=== PATIENT | male | born 1950 | race Two or more races ===

== ENCOUNTER 2017-01-11 13:31 | Inpatient (IN) | payer MEDICARE, OTHER ==
[~2017-01-11] VITALS: Ht 165.1 cm; Wt 63.5 kg
[2017-01-11] MEDS ORDERED: ZOLP5TAB7 PO (13:57)
[2017-01-11] MEDS ORDERED: ASPI-991 PO (13:57)
[2017-01-11] MEDS ORDERED: LINA5TAB PO (13:57)
[2017-01-11] MEDS ORDERED: ESCI5TAB PO (13:57)
[2017-01-11] MEDS ORDERED: INSU100V7 SQ (13:57)
[2017-01-11] MEDS ORDERED: CHOL100044 PO (13:57)
[2017-01-11] MEDS ORDERED: IPRA3AMP IH (13:57)
[2017-01-11] MEDS ORDERED: LISI-607 PO (13:57)
[2017-01-11] MEDS ORDERED: LEVO500T90 PO (13:57)
[2017-01-11] MEDS ORDERED: INSU100V11 SQ (13:57)
[2017-01-11] MEDS ORDERED: TAMS-12 PO (13:57)
[2017-01-11] MEDS ORDERED: BENZ-20 PO (13:57)
[2017-01-11] MEDS ORDERED: METF500T4 PO (13:57)
[2017-01-11] MEDS ORDERED: ATOR40TA PO (13:57)
[2017-01-11] MEDS ORDERED: INSU100V26 SQ (13:57)
--- NOTE | 2017-01-11 14:15 | NUR ---
RN-CO: DR ALAS NOTIFIED AND GAVE ADMITTING ORDERS VIA PHONE CALL, NOTED AND AND CARRIED OUT.
[2017-01-11] MEDS ORDERED: MAGNESIUM HYDROXIDE 30 ML UDC PO PRN (14:30)
[2017-01-11] MEDS ORDERED: ACETAMINOPHEN 325 MG TABLET PO PRN (14:30)
[2017-01-11] MEDS ORDERED: MAG HYDROX/AL HYDROX/SIMETH 30 ML UDC PO PRN (14:30)
[2017-01-11] MEDS ORDERED: LORAZEPAM 0.5 MG TABLET PO PRN (14:30)
--- NOTE | 2017-01-11 14:30 | NUR ---
RN-CO: Admitted a 66 year old white male from [facility] Medical floor.(direct admit). Patient was placed on a 5150 hold for Danger to Himself by Marcella Arellano RN. Upon face to face assessment, patient is angry, belligerent and verbally abusive. Patient stated " go to hell and f*@!K yourself.!" He refused to sign admitting papers and even skin check. Patient verbalized to his primary nurse and to MUSIC RESEARCHER that he feels suicidal but did not disclose how. His affect is angry, and stated "go to hell" to charge nurse. All his belongings were screened for contraband. A sitter was ordered for him because of his suicidal ideations.We will monitor patient closely.
[2017-01-11 15:50] VITALS: BP 137/75
--- NOTE | 2017-01-11 16:15 | NUR ---
RN-CO: Dr Horton seen and examined the patient. Girlfriend "Kelly" was notified regarding the admission.
[2017-01-11] MEDS ORDERED: INSULIN REGULAR, HUMAN 100 UNIT/ML 3 ML VIAL SQ PRN (16:30)
[2017-01-11] MEDS ORDERED: INSULIN GLARGINE HUM REC ANLOG 18 UNIT SQ SCH (16:30)
--- NOTE | 2017-01-11 16:42 | NUR ---
RN-CO: DR ALAS WAS NOTIFIED REGARDING THIS ADMISSION, DR ALAS GAVE HIS ADMITTING ORDERS NOTED AND CARRIED OUT.
[2017-01-11] MEDS ORDERED: Medication Not On Formulary EA (Ipratropium/Albuterol Sulfate (Duoneb 2.5-0.5 Mg/3 Ml So IH SCH (17:00)
[2017-01-11] MEDS: INSULIN ASPART NOVOLOG 100 UNIT/ML CARTRIDGE SQ SCH (17:30)
[2017-01-11] MEDS ORDERED: DEXTROSE 50%-WATER 50 ML DISP.SYRIN IV PRN (17:30)
[2017-01-11] MEDS: BLOOD SUGAR DIAGNOSTIC 1 EACH STRIP VI SCH ×2 (17:40→21:35)
[2017-01-11] MEDS: METFORMIN 500 MG TABLET PO SCH (17:56)
[2017-01-11] MEDS ORDERED: ALBUTEROL FS 2.5 MG/3 ML VIAL.NEB NEB PRN (18:00)
[2017-01-11] MEDS ORDERED: IPRATROPIUM NEB FS 0.5 MG/2.5 ML AMPUL.NEB NEB PRN (18:00)
--- NOTE | 2017-01-11 18:36 | NUR ---
GPS/RN INSULIN ABSENT FROM UNIT, SPOKE WITH PHARMACY ON 3 OCCASIONS, STATED THAT IT IS ON ROUTE TO UNIT, AWAITING INSULIN, UNABLE TO ADMINISTER AT THIS TIME. BS 141, PATIENT STABLE NO S/S OF DISTRESS AT THIS TIME.
--- NOTE | 2017-01-11 19:15 | NUR ---
GPS/RN NOTE: PATIENT UP IN BED, QUIET, CALM, NO ACUTE DISTRESS NOTED.
[2017-01-11 20:00] VITALS: BP 154/84
[2017-01-11] MEDS: TAMSULOSIN 0.4 MG CAP.SR.24H PO SCH (21:30)
[2017-01-11] MEDS: ATORVASTATIN 40 MG TABLET PO SCH (21:30)
[2017-01-11] MEDS: INSULIN REGULAR, HUMAN 100 UNIT/ML 3 ML VIAL SQ PRN (21:38)
--- NOTE | 2017-01-11 21:39 | NUR ---
GPS/RN NOTE: ACCUCHECK 154 MG/DL, 2 UNITS REGULAR INSULIN SC ADMINISTERED.
[2017-01-12 06:46] LABS: ALBUMIN 2.5 g/dL (3.4-5.0); BILIRUBIN,TOTAL 0.3 mg/dL (0.2-1.0); TOTAL PROTEIN, SERUM 7.2 g/dL (6.4-8.2)
--- NOTE | 2017-01-12 07:03 | NUR ---
GPS/RN NOTE: PHOTOS TAKEN. SKIN ASSESSMENT DONE
[2017-01-12] MEDS: BLOOD SUGAR DIAGNOSTIC 1 EACH STRIP VI SCH ×4 (08:03→21:14)
[2017-01-12 08:04] VITALS: BP 138/74
[2017-01-12] MEDS: INSULIN ASPART NOVOLOG 100 UNIT/ML CARTRIDGE SQ SCH ×3 (08:05→17:46)
[2017-01-12] MEDS: INSULIN REGULAR, HUMAN 100 UNIT/ML 3 ML VIAL SQ PRN (08:07)
[2017-01-12] MEDS: METFORMIN 500 MG TABLET PO SCH ×2 (08:45→17:20)
[2017-01-12] MEDS: CHOLECALCIFEROL 1,000 UNIT TABLET (VIT D3) PO SCH (08:45)
[2017-01-12] MEDS: LINAGLIPTIN 5 MG TABLET PO SCH (08:45)
[2017-01-12] MEDS: LEVOFLOXACIN (500MG) 500 MG TABLET PO SCH (08:45)
[2017-01-12] MEDS: LISINOPRIL (5MG) 5 MG TABLET PO SCH (08:45)
[2017-01-12] MEDS: BENZONATATE 100 MG CAPSULE PO SCH (08:45)
[2017-01-12] MEDS: ASPIRIN EC 81 MG TABLET.DR PO SCH (08:45)
[2017-01-12] MEDS: INSULIN DETEMIR 100 UNIT/ML CARTRIDGE SQ SCH (08:47)
--- NOTE | 2017-01-12 12:02 | NUR ---
Initial Discharge Plan: Patient lives in an apartment with his girlfriend [address] [place] [id number]. ([phone]). cattle alley worker attempted to contact patient's girlfriend Svetlana Mendoza / . However, she was unavailable. cattle alley worker left a detailed message with her contact information. cattle alley worker will attempt again later. cattle alley worker will follow-up with MD, Family, and Patient regarding most appropriate discharge. cattle alley worker will help form a safe and proper discharge.
--- NOTE | 2017-01-12 15:15 | NUR ---
Reviewed psychosocial assessment on patient done by Tyra Krishnamurthy. Addendum: 01/12/17 at 1516 by SEGUNDO BURK Amended: Links added.
[2017-01-12 15:36] VITALS: BP 144/80
[2017-01-12 20:00] VITALS: BP 147/71
[2017-01-12] MEDS: ATORVASTATIN 40 MG TABLET PO SCH (20:58)
[2017-01-12] MEDS: TAMSULOSIN 0.4 MG CAP.SR.24H PO SCH (20:58)
[2017-01-13 08:00] VITALS: BP 119/70
[2017-01-13] MEDS: LEVOFLOXACIN (500MG) 500 MG TABLET PO SCH (08:16)
[2017-01-13] MEDS: ASPIRIN EC 81 MG TABLET.DR PO SCH (08:17)
[2017-01-13] MEDS: CHOLECALCIFEROL 1,000 UNIT TABLET (VIT D3) PO SCH (08:17)
[2017-01-13] MEDS: SERTRALINE HCL 50 MG TABLET PO SCH (08:17)
[2017-01-13] MEDS: METFORMIN 500 MG TABLET PO SCH ×2 (08:17→18:12)
[2017-01-13] MEDS: LINAGLIPTIN 5 MG TABLET PO SCH (08:17)
[2017-01-13] MEDS: BENZONATATE 100 MG CAPSULE PO SCH (08:17)
[2017-01-13] MEDS: BLOOD SUGAR DIAGNOSTIC 1 EACH STRIP VI SCH ×4 (08:19→21:40)
[2017-01-13] MEDS: LISINOPRIL (5MG) 5 MG TABLET PO SCH (08:19)
[2017-01-13] MEDS: INSULIN ASPART NOVOLOG 100 UNIT/ML CARTRIDGE SQ SCH ×3 (08:29→18:03)
[2017-01-13] MEDS: INSULIN DETEMIR 100 UNIT/ML CARTRIDGE SQ SCH (08:30)
[2017-01-13] MEDS: INSULIN REGULAR, HUMAN 100 UNIT/ML 3 ML VIAL SQ PRN ×3 (08:36→18:04)
[2017-01-13 16:00] VITALS: BP 115/62
[2017-01-13 20:04] VITALS: BP 112/59
--- NOTE | 2017-01-13 20:08 | NUR ---
GPS/RN NOTE: PATIENT AWAKE, ALERT, ORIENTED X3, OFFERED JELLO PER REQUEST. ENCOURAGED TO AMBULATE AROUND THE UNIT. NO SIGNS OF ANY RESPIRATORY DISTRESS.
[2017-01-13] MEDS: TAMSULOSIN 0.4 MG CAP.SR.24H PO SCH (21:42)
[2017-01-13] MEDS: ATORVASTATIN 40 MG TABLET PO SCH (21:43)
--- NOTE | 2017-01-14 06:45 | NUR ---
GPS/RN NOTE: PATIENT REFUSED SKIN ASSESSMENT
[2017-01-14 08:00] VITALS: BP 133/65
[2017-01-14] MEDS: BLOOD SUGAR DIAGNOSTIC 1 EACH STRIP VI SCH ×4 (08:01→21:35)
[2017-01-14] MEDS: LEVOFLOXACIN (500MG) 500 MG TABLET PO SCH (08:22)
[2017-01-14] MEDS: BENZONATATE 100 MG CAPSULE PO SCH (08:22)
[2017-01-14] MEDS: LISINOPRIL (5MG) 5 MG TABLET PO SCH (08:23)
[2017-01-14] MEDS: SERTRALINE HCL 50 MG TABLET PO SCH (08:23)
[2017-01-14] MEDS: METFORMIN 500 MG TABLET PO SCH ×2 (08:24→16:49)
[2017-01-14] MEDS: LINAGLIPTIN 5 MG TABLET PO SCH (08:24)
[2017-01-14] MEDS: CHOLECALCIFEROL 1,000 UNIT TABLET (VIT D3) PO SCH (08:24)
[2017-01-14] MEDS: ASPIRIN EC 81 MG TABLET.DR PO SCH (08:27)
[2017-01-14] MEDS: INSULIN ASPART NOVOLOG 100 UNIT/ML CARTRIDGE SQ SCH ×3 (08:29→18:14)
[2017-01-14] MEDS: *INSULIN REGULAR(HUMULIN R)HUM 100 UNIT/ML VIAL SQ PRN (08:31)
[2017-01-14] MEDS: INSULIN DETEMIR 100 UNIT/ML CARTRIDGE SQ SCH (08:31)
[2017-01-14] MEDS: INSULIN REGULAR, HUMAN 100 UNIT/ML 3 ML VIAL SQ PRN (12:08)
[2017-01-14 16:21] VITALS: BP 115/58
--- NOTE | 2017-01-14 19:36 | NUR ---
GPS//RN NOTE: PATIENT IS SITTING ON A CHAIR INSIDE HIS ROOM, AWAKE, ALERT, ORIENTED X3, DENIES ANY DISCOMFORT. NO APPARENT DISTRESS NOTED. RESPONDS WHEN ENGAGED.
[2017-01-14 19:52] VITALS: BP 110/63
[2017-01-14] MEDS: ATORVASTATIN 40 MG TABLET PO SCH (21:35)
[2017-01-14] MEDS: TAMSULOSIN 0.4 MG CAP.SR.24H PO SCH (21:35)
--- NOTE | 2017-01-14 21:36 | NUR ---
GPS/RN NOTE: ACCUCHECK 125 MG/DL, NO INSULIN DUE AT THIS TIME. SNACKS OFFERED.
[2017-01-15] MEDS: ASPIRIN EC 81 MG TABLET.DR PO SCH (07:58)
[2017-01-15] MEDS: LEVOFLOXACIN (500MG) 500 MG TABLET PO SCH (07:58)
[2017-01-15] MEDS: SERTRALINE HCL 50 MG TABLET PO SCH (07:58)
[2017-01-15] MEDS: METFORMIN 500 MG TABLET PO SCH ×2 (07:59→17:01)
[2017-01-15] MEDS: BENZONATATE 100 MG CAPSULE PO SCH (07:59)
[2017-01-15] MEDS: LISINOPRIL (5MG) 5 MG TABLET PO SCH (07:59)
[2017-01-15 08:00] VITALS: BP 114/63
[2017-01-15] MEDS: LINAGLIPTIN 5 MG TABLET PO SCH (08:00)
[2017-01-15] MEDS: CHOLECALCIFEROL 1,000 UNIT TABLET (VIT D3) PO SCH (08:00)
[2017-01-15] MEDS: BLOOD SUGAR DIAGNOSTIC 1 EACH STRIP VI SCH ×4 (08:01→22:05)
[2017-01-15] MEDS: INSULIN ASPART NOVOLOG 100 UNIT/ML CARTRIDGE SQ SCH ×3 (08:03→17:06)
[2017-01-15] MEDS: INSULIN DETEMIR 100 UNIT/ML CARTRIDGE SQ SCH (08:04)
[2017-01-15] MEDS: INSULIN REGULAR, HUMAN 100 UNIT/ML 3 ML VIAL SQ PRN ×2 (08:07→12:12)
--- NOTE | 2017-01-15 14:38 | NUR ---
tree worker attempted to call patient's girlfriend Svetlana Villalba Kelly / / and she was unavailable. tree worker left her a detailed message with contact information. tree worker will attempt again later.
[2017-01-15 16:00] VITALS: BP 110/60
[2017-01-15 19:55] VITALS: BP 124/71
[2017-01-15] MEDS: TAMSULOSIN 0.4 MG CAP.SR.24H PO SCH (21:45)
[2017-01-15] MEDS: ATORVASTATIN 40 MG TABLET PO SCH (21:45)
[2017-01-15] MEDS: *INSULIN REGULAR(HUMULIN R)HUM 100 UNIT/ML VIAL SQ PRN (22:08)
[2017-01-16 08:00] VITALS: BP 120/62
[2017-01-16] MEDS: BENZONATATE 100 MG CAPSULE PO SCH (08:09)
[2017-01-16] MEDS: ASPIRIN EC 81 MG TABLET.DR PO SCH (08:10)
[2017-01-16] MEDS: LINAGLIPTIN 5 MG TABLET PO SCH (08:10)
[2017-01-16] MEDS: LISINOPRIL (5MG) 5 MG TABLET PO SCH (08:10)
[2017-01-16] MEDS: SERTRALINE HCL 50 MG TABLET PO SCH (08:10)
[2017-01-16] MEDS: METFORMIN 500 MG TABLET PO SCH ×2 (08:10→16:17)
[2017-01-16] MEDS: BLOOD SUGAR DIAGNOSTIC 1 EACH STRIP VI SCH ×4 (08:10→21:21)
[2017-01-16] MEDS: CHOLECALCIFEROL 1,000 UNIT TABLET (VIT D3) PO SCH (08:10)
[2017-01-16] MEDS: LEVOFLOXACIN (500MG) 500 MG TABLET PO SCH (08:10)
[2017-01-16] MEDS: INSULIN ASPART NOVOLOG 100 UNIT/ML CARTRIDGE SQ SCH ×3 (08:40→16:35)
[2017-01-16] MEDS: INSULIN DETEMIR 100 UNIT/ML CARTRIDGE SQ SCH (08:41)
[2017-01-16] MEDS: INSULIN REGULAR, HUMAN 100 UNIT/ML 3 ML VIAL SQ PRN ×2 (08:43→12:09)
--- NOTE | 2017-01-16 12:30 | NUR ---
general scrap worker spoke to patient's girlfriend Kelly who stated that patient can return home when he is ready for discharge [address] [place] [address]. Kelly stated that patient's friend Fili can pick him up when he is ready. general scrap worker spoke to Fili who confirmed that he is able to pick him up when he is ready for discharge. general scrap worker will follow-up.
[2017-01-16 16:00] VITALS: BP 115/87
--- NOTE | 2017-01-16 19:39 | NUR ---
GPS/RN NOTE: PATIENT AWAKE, ALERT, UP WALKING AROUND THE UNIT, NO COMPLAINTS MADE AT THIS TIME.
[2017-01-16 20:00] VITALS: BP 120/62
[2017-01-16] MEDS: TAMSULOSIN 0.4 MG CAP.SR.24H PO SCH (21:20)
[2017-01-16] MEDS: ATORVASTATIN 40 MG TABLET PO SCH (21:21)
[2017-01-16] MEDS: *INSULIN REGULAR(HUMULIN R)HUM 100 UNIT/ML VIAL SQ PRN (21:22)
[2017-01-17 08:00] VITALS: BP 107/55
[2017-01-17] MEDS: BLOOD SUGAR DIAGNOSTIC 1 EACH STRIP VI SCH ×4 (08:06→21:03)
[2017-01-17] MEDS: ASPIRIN EC 81 MG TABLET.DR PO SCH (08:06)
[2017-01-17] MEDS: BENZONATATE 100 MG CAPSULE PO SCH (08:07)
[2017-01-17] MEDS: CHOLECALCIFEROL 1,000 UNIT TABLET (VIT D3) PO SCH (08:07)
[2017-01-17] MEDS: SERTRALINE HCL 50 MG TABLET PO SCH (08:07)
[2017-01-17] MEDS: LEVOFLOXACIN (500MG) 500 MG TABLET PO SCH (08:07)
[2017-01-17] MEDS: LISINOPRIL (5MG) 5 MG TABLET PO SCH (08:07)
[2017-01-17] MEDS: LINAGLIPTIN 5 MG TABLET PO SCH (08:07)
[2017-01-17] MEDS: METFORMIN 500 MG TABLET PO SCH ×2 (08:07→16:04)
[2017-01-17] MEDS: INSULIN ASPART NOVOLOG 100 UNIT/ML CARTRIDGE SQ SCH ×3 (08:11→16:57)
[2017-01-17] MEDS: INSULIN DETEMIR 100 UNIT/ML CARTRIDGE SQ SCH (08:15)
[2017-01-17] MEDS: INSULIN REGULAR, HUMAN 100 UNIT/ML 3 ML VIAL SQ PRN ×2 (08:44→12:12)
[2017-01-17 16:00] VITALS: BP 112/66
[2017-01-17 20:20] VITALS: BP 138/68
[2017-01-17] MEDS: ATORVASTATIN 40 MG TABLET PO SCH (21:00)
[2017-01-17] MEDS: TAMSULOSIN 0.4 MG CAP.SR.24H PO SCH (21:01)
[2017-01-18 08:00] VITALS: BP 127/73
[2017-01-18] MEDS: INSULIN REGULAR, HUMAN 100 UNIT/ML 3 ML VIAL SQ PRN ×2 (08:04→12:10)
[2017-01-18] MEDS: INSULIN DETEMIR 100 UNIT/ML CARTRIDGE SQ SCH (08:06)
[2017-01-18] MEDS: BLOOD SUGAR DIAGNOSTIC 1 EACH STRIP VI SCH ×4 (08:06→22:13)
[2017-01-18] MEDS: INSULIN ASPART NOVOLOG 100 UNIT/ML CARTRIDGE SQ SCH ×3 (08:08→17:36)
[2017-01-18] MEDS: LEVOFLOXACIN (500MG) 500 MG TABLET PO SCH (08:33)
[2017-01-18] MEDS: SERTRALINE HCL 50 MG TABLET PO SCH (08:34)
[2017-01-18] MEDS: BENZONATATE 100 MG CAPSULE PO SCH (08:34)
[2017-01-18] MEDS: LINAGLIPTIN 5 MG TABLET PO SCH (08:34)
[2017-01-18] MEDS: LISINOPRIL (5MG) 5 MG TABLET PO SCH (08:34)
[2017-01-18] MEDS: CHOLECALCIFEROL 1,000 UNIT TABLET (VIT D3) PO SCH (08:35)
[2017-01-18] MEDS: ASPIRIN EC 81 MG TABLET.DR PO SCH (08:35)
[2017-01-18] MEDS: METFORMIN 500 MG TABLET PO SCH ×2 (08:35→17:30)
[2017-01-18 16:00] VITALS: BP 102/63
[2017-01-18] MEDS: ATORVASTATIN 40 MG TABLET PO SCH (21:46)
[2017-01-18] MEDS: TAMSULOSIN 0.4 MG CAP.SR.24H PO SCH (21:46)
[2017-01-18] MEDS: TEMAZEPAM 7.5 MG CAPSULE PO PRN (21:46)
[2017-01-19] MEDS: BLOOD SUGAR DIAGNOSTIC 1 EACH STRIP VI SCH ×4 (07:49→22:24)
[2017-01-19 08:00] VITALS: BP 113/65
[2017-01-19] MEDS: INSULIN ASPART NOVOLOG 100 UNIT/ML CARTRIDGE SQ SCH ×3 (08:01→17:38)
[2017-01-19] MEDS: INSULIN REGULAR, HUMAN 100 UNIT/ML 3 ML VIAL SQ PRN (08:03)
[2017-01-19] MEDS: INSULIN DETEMIR 100 UNIT/ML CARTRIDGE SQ SCH (08:04)
[2017-01-19] MEDS: BENZONATATE 100 MG CAPSULE PO SCH (08:05)
[2017-01-19] MEDS: ASPIRIN EC 81 MG TABLET.DR PO SCH (08:05)
[2017-01-19] MEDS: SERTRALINE HCL 50 MG TABLET PO SCH (08:05)
[2017-01-19] MEDS: LEVOFLOXACIN (500MG) 500 MG TABLET PO SCH (08:05)
[2017-01-19] MEDS: METFORMIN 500 MG TABLET PO SCH ×2 (08:06→16:24)
[2017-01-19] MEDS: CHOLECALCIFEROL 1,000 UNIT TABLET (VIT D3) PO SCH (08:06)
[2017-01-19] MEDS: LISINOPRIL (5MG) 5 MG TABLET PO SCH (08:06)
[2017-01-19] MEDS: LINAGLIPTIN 5 MG TABLET PO SCH (08:06)
--- NOTE | 2017-01-19 13:45 | NUR ---
ceramic worker spoke to patient's girlfriend Kelly to inform her that patient will be returning back home tomorrow. Kelly was agreeable with the discharge plan. ceramic worker spoke with patient's friend Fili who agreed to diamond picker the patient at 10:00 am.
[2017-01-19 16:05] VITALS: BP 111/64
[2017-01-19 20:00] VITALS: BP 111/69
[2017-01-19] MEDS: TAMSULOSIN 0.4 MG CAP.SR.24H PO SCH (22:24)
[2017-01-19] MEDS: ATORVASTATIN 40 MG TABLET PO SCH (22:24)
[2017-01-19] MEDS: TEMAZEPAM 7.5 MG CAPSULE PO PRN (22:24)
[2017-01-20] MEDS: INSULIN ASPART NOVOLOG 100 UNIT/ML CARTRIDGE SQ SCH ×2 (07:47→12:00)
[2017-01-20] MEDS: INSULIN REGULAR, HUMAN 100 UNIT/ML 3 ML VIAL SQ PRN (07:48)
[2017-01-20] MEDS: BLOOD SUGAR DIAGNOSTIC 1 EACH STRIP VI SCH ×2 (07:53→12:00)
--- NOTE | 2017-01-20 08:13 | NUR ---
DR. ALAS GAVE AN ORDER TO D/C HOLD AND D/C HOME. PT. WITH NO DISTRESS, DENIES SUICIDAL AND HOMICIDAL AND TO FOLLOW UP WITH PSYCH AND MEDICAL DOCTORS. KARELY ADAME CALLED AT [phone] AND MADE AWARE OF THE DISCHARGE AND AGREED.
[2017-01-20 08:26] VITALS: BP 100/59
[2017-01-20 09:00] VITALS: BP 100/59
[2017-01-20] MEDS: LISINOPRIL (5MG) 5 MG TABLET PO SCH (09:00)
[2017-01-20] MEDS: SERTRALINE HCL 50 MG TABLET PO SCH (09:14)
[2017-01-20] MEDS: LEVOFLOXACIN (500MG) 500 MG TABLET PO SCH (09:15)
[2017-01-20] MEDS: BENZONATATE 100 MG CAPSULE PO SCH (09:15)
[2017-01-20] MEDS: ASPIRIN EC 81 MG TABLET.DR PO SCH (09:15)
[2017-01-20] MEDS: METFORMIN 500 MG TABLET PO SCH (09:15)
[2017-01-20] MEDS: CHOLECALCIFEROL 1,000 UNIT TABLET (VIT D3) PO SCH (09:15)
[2017-01-20] MEDS: LINAGLIPTIN 5 MG TABLET PO SCH (09:15)
[2017-01-20] MEDS: INSULIN DETEMIR 100 UNIT/ML CARTRIDGE SQ SCH (09:17)
--- NOTE | 2017-01-20 11:12 | NUR ---
DR. GROSS GAVE AN ORDER FOR THE DENIAL RIGHTS FOR ROOM SEARCH TO LOOK FOR THE MISSING CORDLESS PHONES.
--- NOTE | 2017-01-20 11:50 | NUR ---
GPS IRIDOLOGIST NOTES: PATIENT DISCHARGED HOME VIA PRIVATE CAR, WITH GIRLFRIEND DEEP ZELAYA. PATIENT CONDITION IS STABLE FOR DISCHARGE, VS STABLE, PATIENT DENIES ANY SI/HI/AVH AT THE TIME OF DISCHARGE. ALL BELONGINGS RETURNED TO THE PATIENT. SKIN CLEAR AND INTACT, REFUSED DISCHARGE PICTURES TO BE TAKEN. PATIENT PROVIDED WITH PRESCRIPTIONS FOR CURRENT MEDICATIONS AND EDUCATIONAL EXIT CARE. PATIENT PICKED UP BY FRIEND MING , LEFT THE UNIT, ACCOMPANIED BY STAFF MEMBER, .
--- NOTE | 2017-01-22 12:36 | NUR ---
Discharge Note: Patient was discharged back home with girlfriend Svetlana Mendoza [address] [place] [address]. ([phone]). Patient was picked up by his friend Fili via private vehicle. Patient was agreeable with the discharge plan. Patient left with no distress and denied suicidal/ homicidal ideations. powder worker tnt provided patient with referrals to the [facility] [address] [place] [address]. Patient agreed to follow-up with a psychiatrist within 30 days. Facilitated info to IDT team who are in agreement with discharge arrangement. The multidisciplinary exitcare form was done, printed, signed, and given to the patient.
== END 2017-01-20 11:50 | disposition home or self-care (01) | DRG 885 ==
LOC: GPS 13:31
PROVIDERS: ADMIT Psychiatry & Neurology Psychiatry; ATTEND Internal Medicine
DX: F33.2 Major depressive disorder, recurrent severe without psychotic features (principal); I11.0 Hypertensive heart disease with heart failure; E11.65 Type 2 diabetes mellitus with hyperglycemia; I50.32 Chronic diastolic (congestive) heart failure; R45.851 Suicidal ideations; E78.5 Hyperlipidemia, unspecified; I25.10 Atherosclerotic heart disease of native coronary artery without angina pectoris; N40.0 Benign prostatic hyperplasia without lower urinary tract symptoms
CPT/HCPCS: 36415; 80053-TC; 80061-TC; 82962-TC; 87081-TC; J1815